=== PATIENT | female | born 1990 | race Two or more races ===

== ENCOUNTER 2024-09-18 21:11 | Emergency (ER) | payer OTHER ==
[~2024-09-18] VITALS: Ht 167.6 cm; Wt 59.0 kg
[2024-09-18 21:25] VITALS: BP 110/68; PULSE 70; RESP 16; TEMP 98; O2SAT 100
[2024-09-18] MEDS: KETOROLAC TROMETH 60MG/2ML VIAL IM ONE (21:29)
--- NOTE | 2024-09-18 21:35 | ED.PDOC ---
Back pain HPI HPI Comments 34 year old female presents to ER with complaints of back pain x 2 weeks. Patient reports she's been experiencing lower lumbar back pain since 09/03/24 s/p a gurney unlocking and collapsing while she was holding it at work. She rates her current pain a 7/10 diffuse to lower lumbar spine with radiation towards her mid back. States she has been taking ibuprofen for her pain without relief. Patient presents to ER ambulatory on arrival, with steady gait, in mild distress. Denies fever, numbness/tingling, nausea/vomiting, shortness of breath, falls, chest pain, abdominal pain, changes in urination/BM or any further symptoms/complaints Chief Complaint: Back Pain Time Seen by MD: 21:18 Primary Care Provider: UNKNOWN Reviewed Notes: Nurses Notes, Medications, Allergies Allergies: Coded Allergies: NO KNOWN ALLERGIES (Unverified , 09/18/24) Home Meds Active Scripts Ibuprofen (Ibuprofen) 800 Mg Tab, 1 TAB PO TID PRN, #30 TAB 0 Refills Prov:TANIKA GONZALEZ 09/18/24 Cyclobenzaprine Hcl (Cyclobenzaprine Hcl) 5 Mg Tab, 1 TAB PO QHSP, #14 TAB 0 Refills Prov:TANIKA GONZALEZ 09/18/24 Information Source: Patient Mode of Arrival: Ambulatory Past Medical History PAST MEDICAL HISTORY: Denies Surgical History: Denies all surgeries Family History Family History: Unknown Social History Smoker: Non-Smoker Alcohol: Denies ETOH Use Drugs: Denies Drug Use Lives In: Home Constitutional: denies: chills, diaphoresis, fatigue, fever, malaise, sweats, weakness, others EENTM: denies: blurred vision, double vision, ear bleeding, ear discharge, ear drainage, ear pain, ear ringing, eye pain, eye redness, hearing loss, mouth pain, mouth swelling, nasal discharge, nose bleeding, nose congestion, nose pain, photophobia, tearing, throat pain, throat swelling, voice changes, others Respiratory: denies: cough, hemoptysis, orthopnea, SOB at rest, shortness of breath, SOB with excertion, stridor, wheezing, others Cardiovascular: denies: chest pain, dizzy spells, diaphoresis, Dyspnea on exertion, edema, irregular heart beat, left arm pain, lightheadedness, palpitations, PND, syncope, others Gastrointestinal: denies: abdomen distended, abdominal pain, blood streaked bowels, constipated, diarrhea, dysphagia, difficulty swallowing, hematemesis, melena, nausea, poor appetite, poor fluid intake, rectal bleeding, rectal pain, vomiting, others Genitourinary: denies: abnormal vagina bleeding, burning, dyspareunia, dysuria, flank pain, frequency, hematuria, incontinence, pain, , vagina discharge, urgency, others Neurological: denies: dizziness, fainting, headache, left sided numbness, left sided weakness, numbness, paresthesia, pre-existing deficit, right sided numbness, right sided weakness, seizure, speech problems, tingling, tremors, weakness, others Musculoskeletal: reports: others (As stated in HPI) Integumetry: denies: bruises, change in color, change in hair/nails, dryness, laceration, lesions, lumps, rash, wounds, others Allergic/Immunocompromised: denies: Difficulty Healing, Frequent Infections, Hives, Itching, others Hematologic/Lymphatic: denies: anemia, blood clots, easy bleeding, easy bruising, swollen glands, others Endocrine: denies: excessive hunger, excessive sweating, excessive thirst, excessive urination, flushing, intolerance to cold, intolerance to heat, unexplained weight gain, unexplained weight loss, others Psychiatric: denies: anxiety, bipolar disorder, depression, hopeless, panic disorder, schizophrenia, sleepless, suicidal, others Physical Exam General Appearance: Mild Distress (Due to lower lumbar back pain) HEENT: PERRL/EOMI Neck: Full Range of Motion, Non-Tender, Normal Respiratory: Chest Non-Tender, Lungs Clear, No Accessory Muscle Use, No Respiratory Distress, Normal Breath Sounds Cardiovascular: No Murmur, No Gallop, Regular Rate/Rhythm Breast Exam: Deferred Gastrointestinal: Non Tender, No Pulsatile Mass, Soft Genitalia: Deferred Pelvic: Deferred Rectal: Deferred Extremities: Normal capillary refill, Normal range of motion Musculoskeletal : Extremity Location: Back (TTP diffuse to bilateral lower lumbar paraspinals noted. No skin changes noted. Steady gait appreciated) Neurologic: Alert, No Motor Deficits, No Sensory Deficits Cerebellar Function: Normal Reflexes: Normal Skin: Dry, Normal Color, Warm Peripheral Pulses: 2+ femoral (R), 2+ femoral (L), 2+ dorsalis pedis (R), 2+ dorsalis pedis (L), 2+ Radial (R), 2+ Radial (L), 2+ Brachial (R), 2+ Brachial (L) Lymphatic: No Adenopathy Was a procedure done? Was a procedure done?: No Sedation Sedation?: No Back Pain Differential Dx Differential Diagnosis: AAA, Fracture, Other (Neurovascular injury) X-Ray, Labs, Meds, VS Vital Signs Date Time Temp Pulse Resp B/P (MAP) Pulse Ox O2 Delivery O2 Flow Rate FiO2 09/18/24 21:25 70 16 100 Room Air 09/18/24 21: 98.0 70 16 110/68 (82) 100 98.0 09/18/24 21:11 98.0 70 16 110/68 (82) 100 98.0 Current Medications Medications (Trade) Dose Ordered Sig/Briseida Route Start Time Stop Time Status Last Admin Ketorolac Tromethamine (Toradol Injection) 60 mg ONCE ONCE IM 09/18/24 21:30 09/18/24 21:31 DC 09/18/24 21:29 PATIENT: NICOLE HUBBARDCCT: [id number]: [id number] : 1990 LOC: ER ROOM / BED: / AGE / SEX: 34 / F ADM STATUS: REG ER SERVICE 25 ORDERING PHYSICIAN: TANIKA GONZALEZ PROCEDURE(s): LUMB2 - LUMBAR SPINE 3 VIEW REASON: lumbar back pain ORDER NUMBER(s): [id number], ACCESSION NUMBER(s): [id number] INDICATION: lumbar back pain COMPARISON: None TECHNIQUE: AP, lateral and L5-S1 spot radiographs of the lumbar spine. FINDINGS: There is normal alignment of the lumbar spine. The lumbar vertebral bodies, T11 and T12 are normal in appearance. The intervertebral disc spaces are preserved. Facet and SI joints appear unremarkable. IMPRESSION: No abnormality demonstrated. ATED BY: CHILANGO SILVER MD DICTATED DATE/TIME: 09/18/242211 SIGNED BY: CHILANGO SILVER MD SIGNED DATE/TIME: 09/18/242211 CC: waiver signed Toradol 60 mg IM ordered Patient neurovascularly intact and reported improvement in symptoms prior to discharge Cameron blanca paperwork filled out Advised on rest/no strenuous activity Advised to follow up with PCP and cameron blanca PCP in 1-2 days Patient verbalized understanding and agreeable with current plan of care Advised to return to ER immediately if symptoms worsen Images Reviewed?: Images reviewed and evaluated by me Time of 1ST Reevaluation: 21:14 Reevaluation 1ST: N/A Patient Education/Counseling: Diagnosis, Treatment, Prognosis, Need For Follow Up Family Education/Counseling: No Family Present Departure 1 Departure Time of Disposition: 21:30 Impression: Primary Impression: Lumbar strain Qualified Codes: S39.012A - Strain of muscle, fascia and tendon of lower back, initial encounter Disposition: HOME / SELF CARE / HOMELESS Condition: Stable e-Prescriptions Ibuprofen (Ibuprofen) 800 Mg Tab 1 TAB PO TID PRN, #30 TAB 0 Refills Prov: TANIKA GONZALEZ 09/18/24 Cyclobenzaprine Hcl (Cyclobenzaprine Hcl) 5 Mg Tab 1 TAB PO QHSP, #14 TAB 0 Refills Prov: TANIKA GONZALEZ 09/18/24 Discharged With: Friend Critical Care Note Critical Care Time?: No Stability Stability form required: No Heart Score Heart Score: Heart Score Response (Comments) Value History N/A 0 EKG N/A 0 Age N/A 0 Risk Factors N/A 0 Troponin N/A 0 Total 0 TANIKA GONZALEZ September 18, 2024 21:35
[2024-09-18] MEDS ORDERED: IBUP-1456 PO (21:37)
[2024-09-18] MEDS ORDERED: CYCL-837 PO (21:37)
--- NOTE | 2024-09-18 22:15 | DVH ---
INDICATION: lumbar back pain COMPARISON: None TECHNIQUE: AP, lateral and L5-S1 spot radiographs of the lumbar spine. FINDINGS: There is normal alignment of the lumbar spine. The lumbar vertebral bodies, T11 and T12 are normal in appearance. The intervertebral disc spaces are preserved. Facet and SI joints appear unremarkable. IMPRESSION: No abnormality demonstrated.
== END 2024-09-18 22:24 | disposition home or self-care (01) ==
LOC: ER 21:11
DX: S39.012A Strain of muscle, fascia and tendon of lower back, initial encounter (principal); X58.XXXA Exposure to other specified factors, initial encounter; Y93.89 Activity, other specified; Y92.89 Other specified places as the place of occurrence of the external cause; Y99.0 Civilian activity done for income or pay
CPT/HCPCS: 72100; 96372; 99283; J1885